=== PATIENT | female | born 1955 | race Caucasian/White ===

== ENCOUNTER 2023-08-17 13:04 | Outpatient (CLI) | payer MEDICARE ==
[~2023-08-17 13:04] MED LIST: Gadobenate 529 MG/ML (10ML SDV) ONE; Gadobenate Dimeglumine 2 ML, Sodium Chloride 0.9% 250 ML 10 ML, Iopamidol 8 ML, Lidocai... FS SCH; Iopamidol 300 61% 30 ML VIAL ONE; Magnevist 469MG/ML 20 ML VIAL ONE
[2023-08-17] MEDS ORDERED: Lidocaine 1% PF 5 ML VIAL ONE (13:36)
[2023-08-17] MEDS ORDERED: Sodium Bicarbonate 2.5 MEQ/5 ML SDV ONE (13:36)
== END 2023-08-17 13:05 | disposition home or self-care (01) ==
LOC: CSHRAD 13:04
PROVIDERS: ATTEND Orthopaedic Surgery
DX: M25.511 Pain in right shoulder (principal); M75.121 Complete rotator cuff tear or rupture of right shoulder, not specified as traumatic; M62.511 Muscle wasting and atrophy, not elsewhere classified, right shoulder; M65.811 Other synovitis and tenosynovitis, right shoulder
CPT/HCPCS: 23350; 73222; 77002; A9577; J0171; J7050; Q9967; A9579